=== PATIENT | female | born 1940 | race Caucasian/White ===

== ENCOUNTER 2016-07-27 11:15 | Outpatient (RCR) | payer MEDICARE | END 2016-08-06 10:52 | disposition home or self-care (01) | LOC: WSPT 11:15 | DX: R42 Dizziness and giddiness (principal); R26.89 Other abnormalities of gait and mobility | CPT/HCPCS: G8978-GP; G8979-GP; G8980-GP ==

== ENCOUNTER → 2017-02-09 | Outpatient (CLI) | payer MEDICARE | LOC: MC.RAD 14:40 | DX: Z12.31 Encounter for screening mammogram for malignant neoplasm of breast (principal) ==

== ENCOUNTER → 2018-02-14 | Outpatient (CLI) | payer MEDICARE | LOC: MC.RAD 16:00 | DX: Z12.31 Encounter for screening mammogram for malignant neoplasm of breast (principal) ==

== ENCOUNTER 2019-03-27 16:48 | Emergency (ER) | payer MEDICARE ==
[~2019-03-27] VITALS: Ht 160 cm; Wt 90.9 kg
[2019-03-27 17:38] VITALS: TEMP 96.9
[2019-03-27 19:16] LABS: BASO % 0.4 % (0.0-2.0); EOS % 0.3 % (0-4.0); GRAN # 5.5 (1.4-6.5); GRAN % 80.7 % (42.2-75.2); HEMATOCRIT 45.3 % (37.0-47.0); LYMPH # 0.6 (1.2-3.4); LYMPH % 8.3 % (20.0-51.0); MEAN CELL VOLUME 90 fl (80.0-100.0); MEAN CORPUSCULAR HEMOGLOBIN 28 pg (27.0-31.0); MEAN CORPUSCULAR HGB CONC 31 g/dl (33.0-37.0); MEAN PLATELET VOLUME 10.7 fl (7.4-10.4); MONO # 0.6 (0.1-0.6); MONO % 8.7 % (1.7-9.3); PLATELET COUNT 277 K/mm3 (130-400); RED BLOOD COUNT 5.06 M/mm3 (4.10-5.30); REDCELL DISTRIBUTION WIDTH-CV 15.9 % (11.5-14.5)
[2019-03-27 19:24] LABS: ALBUMIN 4.2 gm/dL (3.5-5.0); BILIRUBIN,TOTAL 0.7 mg/dL (0.0-1.0); C-REACTIVE PROTEIN 6.2 mg/dL (0.0-0.9); CALCIUM 9.4 mg/dL (8.4-10.2); CREATININE, serum 0.92 (0.52-1.25); POTASSIUM 4.2 mmol/L (3.4-5.0); TOTAL PROTEIN 7.8 gm/dL (6.4-8.2)
[2019-03-27] MEDS ORDERED: NORCO 325 MG-51 TAB PO (21:14)
[2019-03-27 21:20] VITALS: BP 166/99; PULSE 100
[2019-03-27] MEDS ORDERED: EFFEXOR-XR150 MG PO (21:27)
[2019-03-27] MEDS ORDERED: PRAVACHOL 20MG20 MG PO (21:27)
[2019-03-27] MEDS ORDERED: NORVASC 5MG5 MG/TAB PO (21:28)
[2019-03-27] MEDS ORDERED: ASPIRIN 81M81 MG/TA2 PO (21:28)
[2019-03-27] MEDS ORDERED: THE MEDICINE S200 M2 PO (21:29)
[2019-03-27] MEDS ORDERED: PRILOSEC 20MG20 MG PO (21:29)
[2019-03-27] MEDS ORDERED: HYZAAR 50-12.1 UDTAB (21:31)
[2019-03-27] MEDS ORDERED: ELIQUIS 5MG PO (21:59)
== END 2019-03-27 22:16 | disposition home or self-care (01) ==
LOC: COL.ER 16:48
PROVIDERS: Family Medicine
DX: I26.99 Other pulmonary embolism without acute cor pulmonale (principal); N83.201 Unspecified ovarian cyst, right side; I10 Essential (primary) hypertension; Z90.710 Acquired absence of both cervix and uterus; Z90.89 Acquired absence of other organs; Z79.82 Long term (current) use of aspirin
CPT/HCPCS: J2270; J2405; J7030; Q9967

== ENCOUNTER → 2019-03-29 | Outpatient (CLI) | payer MEDICARE ==
[~2019-03-29] MED LIST: ASPIRIN 81M81 MG/TA2 PO; EFFEXOR-XR150 MG PO; ELIQUIS 5MG PO; HYZAAR 50-12.1 UDTAB; NORCO 325 MG-51 TAB PO; NORVASC 5MG5 MG/TAB PO; PRAVACHOL 20MG20 MG PO; PRILOSEC 20MG20 MG PO; THE MEDICINE S200 M2 PO
== END ==
LOC: COL.RAD 09:51
DX: I26.99 Other pulmonary embolism without acute cor pulmonale (principal); J90 Pleural effusion, not elsewhere classified
CPT/HCPCS: Q9967

== ENCOUNTER → 2019-04-03 | Outpatient (CLI) | payer MEDICARE | LOC: COL.VAS 12:30 | DX: I82.402 Acute embolism and thrombosis of unspecified deep veins of left lower extremity (principal); I26.99 Other pulmonary embolism without acute cor pulmonale ==

== ENCOUNTER → 2019-11-15 | Outpatient (CLI) | payer MEDICARE | LOC: COL.VAS 12:29 | DX: Z01.89 Encounter for other specified special examinations (principal); I82.409 Acute embolism and thrombosis of unspecified deep veins of unspecified lower extremity; I26.99 Other pulmonary embolism without acute cor pulmonale; Z86.718 Personal history of other venous thrombosis and embolism | CPT/HCPCS: Q9967 ==

== ENCOUNTER → 2020-03-21 | Outpatient (CLI) | payer MEDICARE | LOC: MC.RAD 13:34 | DX: Z12.31 Encounter for screening mammogram for malignant neoplasm of breast (principal) ==

== ENCOUNTER → 2020-06-04 | Outpatient (CLI) | payer MEDICARE | LOC: COL.RAD 12:44 | DX: M16.12 Unilateral primary osteoarthritis, left hip (principal) | CPT/HCPCS: J3301; Q9967 ==

== ENCOUNTER → 2020-06-18 | Outpatient (CLI) | payer MEDICARE | LOC: COL.RAD 12:33 | DX: M16.11 Unilateral primary osteoarthritis, right hip (principal) | CPT/HCPCS: J3301; Q9967 ==

== ENCOUNTER → 2021-04-28 | Outpatient (CLI) | payer MEDICARE | LOC: COL.RAD 09:19 | DX: K80.20 Calculus of gallbladder without cholecystitis without obstruction (principal); K76.0 Fatty (change of) liver, not elsewhere classified; N28.1 Cyst of kidney, acquired ==

== ENCOUNTER 2021-05-11 07:20 | Day surgery (SDC) | payer MEDICARE ==
[~2021-05-11] VITALS: Ht 160 cm; Wt 89.2 kg
[2021-05-11] MEDS ORDERED: PROTONIX20 MG PO (07:50)
[2021-05-11] MEDS ORDERED: HYZAAR 12.5 MG-1 TAB PO (07:50)
[2021-05-11] MEDS ORDERED: MELATONIN3 M1 PO (07:51)
[2021-05-11 08:36] VITALS: BP 135/64; PULSE 79; TEMP 97.7
[2021-05-11] MEDS ORDERED: NORCO 325 MG-51 TAB PO (11:35)
[2021-05-11 12:25] VITALS: BP 139/57; PULSE 91; TEMP 97.5
[2021-05-11 12:40] VITALS: BP 139/60; PULSE 89
--- NOTE | 2021-05-11 12:40 | NUR ---
Patient awakens to verbal stimuli. Requesting sprite and apple sauce at this time. Weaned down to RA, tolerating well.
[2021-05-11 12:55] VITALS: BP 138/63; PULSE 87
--- NOTE | 2021-05-11 12:55 | NUR ---
Patient arrived back into [facility] from PACU. Report recieved from JARON Roche. Patient on 3L O2 via NC. Patient drowsy but arousable. Daughter at bedside. Patient states she would like to rest for a bit.
--- NOTE | 2021-05-11 13:00 | NUR ---
Patient stating she is having some pain. PRN pain medications given per MAR.
[2021-05-11 13:10] VITALS: BP 132/53; PULSE 87
--- NOTE | 2021-05-11 13:10 | NUR ---
Went through discharge instructions with patient and daughter. Both verbalized understanding to education. Follow up appointment made. IV removed without complications. Patient daughter to assist patient to restroom and to get dressed.
[2021-05-11 13:26] VITALS: BP 139/57; PULSE 91
--- NOTE | 2021-05-11 13:30 | NUR ---
Patient dressed and voided successfully. States pain is tolerable at this time with minimal nausea. Vital signs stable. Patient meets discharge criteria at this time. Patient escorted to patient entrance via wheelchair. Got into daughter's vehicle unassisted and patient left in the care of her daughter.
== END 2021-05-11 14:40 | disposition home or self-care (01) ==
LOC: SDCO 07:20
DX: K80.10 Calculus of gallbladder with chronic cholecystitis without obstruction (principal); K43.9 Ventral hernia without obstruction or gangrene; E66.9 Obesity, unspecified; Z68.34 Body mass index [BMI] 34.0-34.9, adult; Z86.718 Personal history of other venous thrombosis and embolism; Z79.01 Long term (current) use of anticoagulants; G47.33 Obstructive sleep apnea (adult) (pediatric)
CPT/HCPCS: J0690; J1100; J1170; J1885; J2405; J2704; J3010; J7120

== ENCOUNTER 2021-09-19 08:52 | Inpatient (IN) | payer MEDICARE ==
[~2021-09-19] VITALS: Ht 160 cm; Wt 87.0 kg
[~2021-09-19 08:52] MED LIST changes: +HYZAAR 12.5 MG-1 TAB PO; +MELATONIN5 M1 SL; +PROTONIX 40MG T40 MG PO
[2021-09-19 09:40] LABS: HEMATOCRIT 40.1 % (37.0-47.0); HEMOGLOBIN 13.4 g/dl (12.5-16.0); MEAN CELL VOLUME 94 fl (80.0-100.0); MEAN CORPUSCULAR HEMOGLOBIN 32 pg (27-31); MEAN CORPUSCULAR HGB CONC 33 g/dl (33.0-37.0); MEAN PLATELET VOLUME 11.2 fl (7.4-10.4); PLATELET COUNT 133 K/mm3 (130-400); RED BLOOD COUNT 4.26 M/mm3 (4.10-5.30); REDCELL DISTRIBUTION WIDTH-CV 15.3 % (11.5-14.5)
[2021-09-19 09:55] LABS: GLUCOSE 136 mg/dL (70-99)
[2021-09-19 09:56] LABS: ALANINE AMINOTRANSFERASE 33 U/L (0-55); ALBUMIN 3.4 gm/dL (3.4-4.8); ALKALINE PHOSPHATASE 84 U/L (40-150); ANION GAP 17 mmol/L (7-16); AST,SGOT 23 U/L (5-34); BILIRUBIN,TOTAL 0.6 mg/dL (0.2-1.2); BLOOD UREA NITROGEN 36 mg/dL (10-20); CALCIUM 9.2 mg/dL (8.4-10.2); CARBON DIOXIDE 26 mmol/L (23-31); CHLORIDE 96 mmol/L (98-107); CREATININE, serum 1.43 mg/dL (0.57-1.11); LIPASE 11 U/L (8-78); POTASSIUM 3.8 mmol/L (3.5-4.5); SODIUM 139 mmol/L (136-145); TOTAL PROTEIN 7.2 gm/dL (6.2-8.1)
[2021-09-19 09:59] LABS: BAND 30 % (0-10); LYMPHOCYTE 29 % (20.0-51.0); METAMYELOCYTE 2 % (0-0); NEUTROPHILS 29 % (42.0-75.2); PLATELET ESTIMATE NORMAL (NORMAL)
[2021-09-19 10:02] LABS: TROPONIN-I < 0.010 ng/mL (0.00-0.033)
[2021-09-19] MEDS ORDERED: ELIQUIS 2.5 PO (11:20)
[2021-09-19] MEDS ORDERED: PRAVACHOL 20MG20 MG PO (11:22)
[2021-09-19 16:00] VITALS: BP 130/45; TEMP 98.2
--- NOTE | 2021-09-19 16:48 | NUR ---
14G NG TUBE HAS BEEN INSERTED INTO PT'S RIGHT NARE. CHLORASEPTIC SPRAY USED PRIOR TO INSERTION. AUSCULTATION CONFIRMED CORRECT PLACEMENT, NO GASTRIC CONTENTS SEEN. DR. DELONG CALLED, IS NOT AVAILABLE @ THIS TIME, WILL CALL BACK. PT'S RESPIRATIONS ARE UNLABORED ON ROOM AIR WITH NO WHEEZING. PT DOES APPEAR ANXIOUS. TUBE HAS BEEN SECURED TO PT'S NOSE ET GOWN.
[2021-09-19] MEDS ORDERED: HEALTHY EYES S1 EAC2 PO (18:20)
[2021-09-19 19:25] VITALS: BP 116/50; PULSE 90; TEMP 98.3
--- NOTE | 2021-09-19 23:14 | NUR ---
ASSESSMENT COMPLETE. PT. SITTING IN BED. A&O. NO COMPLAINTS OF PAIN EXCEPT A SORE THROAT. SPRAY GIVEN (SEE EMAR). NG TUBE IN PLACE AND SET TO INTERMITTENT SUCTION. STAND BY ASSISST TO THE BATHROOM. STEADY GAIT. CALL LIGHT IN REACH. NO FURHTER NEEDS AT THIS TIME.
[2021-09-19 23:26] VITALS: BP 131/57; PULSE 91; TEMP 98.1
[2021-09-20 03:50] VITALS: BP 125/56; PULSE 87; TEMP 97.9
[2021-09-20 07:17] LABS: HEMOGLOBIN 11.6 g/dl (12.5-16.0); MEAN CELL VOLUME 96 fl (80.0-100.0); MEAN CORPUSCULAR HEMOGLOBIN 32 pg (27-31); MEAN CORPUSCULAR HGB CONC 33 g/dl (33.0-37.0); MEAN PLATELET VOLUME 10.5 fl (7.4-10.4); PLATELET COUNT 98 K/mm3 (130-400); RED BLOOD COUNT 3.68 M/mm3 (4.10-5.30); REDCELL DISTRIBUTION WIDTH-CV 15.1 % (11.5-14.5)
[2021-09-20 07:19] VITALS: BP 124/54; PULSE 89; TEMP 98.1
[2021-09-20 07:19] LABS: HEMATOCRIT 35.4 % (37.0-47.0)
[2021-09-20 07:59] LABS: BAND 11 % (0-10); EOSINOPHIL 1 % (0-4); LYMPHOCYTE 41 % (20.0-51.0); METAMYELOCYTE 3 % (0-0); NEUTROPHILS 32 % (42.0-75.2)
[2021-09-20 08:00] LABS: ALBUMIN 2.9 gm/dL (3.4-4.8); BILIRUBIN,TOTAL 0.5 mg/dL (0.2-1.2); CALCIUM 8.4 mg/dL (8.4-10.2); CREATININE, serum 0.76 mg/dL (0.57-1.11); PLATELET ESTIMATE DECREASED (NORMAL); POTASSIUM 3.7 mmol/L (3.5-4.5); TOTAL PROTEIN 5.8 gm/dL (6.2-8.1)
--- NOTE | 2021-09-20 10:46 | NUR ---
SW met with patient to complete intake. Patient states that she lives alone In [facility]. Next of kin is her son Rob Meier [phone]. Patient does not utilize DME, is independent with ADL's and does not utilize HH services. PCP is Dr. Silver, [facility]. DPOA/HC is daughter Mayra Pillai. Patient plans to return to her home upon DC. SW will continue to follow. DC plan: home
[2021-09-20 11:27] VITALS: BP 138/59; PULSE 90; TEMP 98.4
--- NOTE | 2021-09-20 13:17 | NUR ---
DR. DELONG MADE AWARE OF LOVENOX ET NORVASC NOT BEING ADMINISTERED THIS AM, BP DECREASED ET PLATELETS DECREASED. PT RESTS IN BED, HAS BEEN UP TO BR X1, HAS VOIDED ET HAD AN INCONTINENT BM. NG TUBE IN PLACE TO LOW INTERMITTENT SUCTION. PT DENIES NAUSEA OR PAIN, STATES THAT SHE JUST DOESN'T FEEL WELL. FAMILY HAS BEEN HERE TO VISIT. CALL LIGHT WITHIN REACH.
[2021-09-20 15:18] VITALS: BP 126/66; PULSE 94; TEMP 97.9
[2021-09-20 20:22] VITALS: BP 145/66; PULSE 89; TEMP 98.1
[2021-09-20 23:47] VITALS: BP 150/65; PULSE 91; TEMP 98
[2021-09-21] VITALS (11 sets, daily range): BP systolic 117–149; BP diastolic 41–74; PULSE 75–102; TEMP 97.7–98.2
--- NOTE | 2021-09-21 02:17 | NUR ---
PATIENT IN BED ON ROOM ENTRY. ALERT AND ORIENTED. DENIES PAIN AND NAUSEA. NG TO LIS, SOME CLEAR/RED ASPIRATION IN TUBE BUT NOTHING IN SUCTION CANISTER. HYPOACTIVE BOWEL SOUNDS NOTED. LARGE HERNIA PRESENT. IVF TO L WRIST IV. DENIES ADDITIONAL NEEDS.
[2021-09-21 06:44] LABS: HEMOGLOBIN 11.2 g/dl (12.5-16.0); MEAN CELL VOLUME 96 fl (80.0-100.0); MEAN CORPUSCULAR HEMOGLOBIN 31 pg (27-31); MEAN CORPUSCULAR HGB CONC 32 g/dl (33.0-37.0); MEAN PLATELET VOLUME 10.5 fl (7.4-10.4); PLATELET COUNT 93 K/mm3 (130-400); RED BLOOD COUNT 3.64 M/mm3 (4.10-5.30); REDCELL DISTRIBUTION WIDTH-CV 14.3 % (11.5-14.5)
[2021-09-21 06:53] LABS: HEMATOCRIT 34.9 % (37.0-47.0)
[2021-09-21 07:09] LABS: ALBUMIN 2.9 gm/dL (3.4-4.8); BILIRUBIN,TOTAL 0.5 mg/dL (0.2-1.2); CALCIUM 8.6 mg/dL (8.4-10.2); CREATININE, serum 0.63 mg/dL (0.57-1.11); POTASSIUM 3.8 mmol/L (3.5-4.5); TOTAL PROTEIN 5.9 gm/dL (6.2-8.1)
--- NOTE | 2021-09-21 08:00 | NUR ---
PT LAYING SUPINE IN BED ON ROOM AIR. NG TUBE ON LIS. PT STATES NO PAIN JUST SOME NAUSEA AND "THIS TUBE IN MY NOSE IS UNCOMFORTABLE." PT STATES THAT SHE IS UNCOMFORTABLE IN BED. I SUGGESTED TO PT THAT SHE CAN GET UP IN CHAIR AND SIT. ASSISTED PT TO GET TO CHAIR. PT STATES NO OTHER NEEDS/CONCERNS AT THIS TIME. "IM JUST WAITING AROUND TIL TIME FOR SURG." CALL LIGHT IS IN WITHIN REACH.
[2021-09-21 08:04] LABS: BAND 4 % (0-10); LYMPHOCYTE 26 % (20.0-51.0); NEUTROPHILS 56 % (42.0-75.2)
[2021-09-21 08:05] LABS: HYPOCHROMIA 1+; PLATELET ESTIMATE DECREASED (NORMAL)
--- NOTE | 2021-09-21 10:47 | NUR ---
Initial visit; Patient thanked Manager Cosmetic for looking in on her and introducing herself. Manager Cosmetic offered spiitual care and will keep patient in her prayers.
--- NOTE | 2021-09-21 15:03 | NUR ---
PT OFF FLOOR TO SURG
--- NOTE | 2021-09-21 19:10 | NUR ---
Pt. to the floor from PACU. Pt. is a&OX3, shift assessment complete. INT to lt. forearm patent, IV fluids infusing. Pt. reports pain to abd at a 7 on pain scale, will give meds per orders. Pt. denies further needs, call light within reach.
[2021-09-22 00:36] VITALS: BP 123/63; PULSE 98; TEMP 97.7
[2021-09-22 03:51] VITALS: BP 136/68; PULSE 98; TEMP 98
[2021-09-22 06:54] LABS: HEMOGLOBIN 11.2 g/dl (12.5-16.0); MEAN CELL VOLUME 96 fl (80.0-100.0); MEAN CORPUSCULAR HEMOGLOBIN 32 pg (27-31); MEAN CORPUSCULAR HGB CONC 33 g/dl (33.0-37.0); MEAN PLATELET VOLUME 10.9 fl (7.4-10.4); PLATELET COUNT 106 K/mm3 (130-400); RED BLOOD COUNT 3.56 M/mm3 (4.10-5.30); REDCELL DISTRIBUTION WIDTH-CV 14.3 % (11.5-14.5)
[2021-09-22 06:55] LABS: HEMATOCRIT 34.1 % (37.0-47.0)
[2021-09-22 07:12] LABS: ALBUMIN 2.6 gm/dL (3.4-4.8); BILIRUBIN,TOTAL 0.5 mg/dL (0.2-1.2); CALCIUM 8.1 mg/dL (8.4-10.2); CREATININE, serum 0.62 mg/dL (0.57-1.11); POTASSIUM 4.2 mmol/L (3.5-4.5); TOTAL PROTEIN 5.3 gm/dL (6.2-8.1)
[2021-09-22 07:55] LABS: BAND 25 % (0-10); LYMPHOCYTE 7 % (20.0-51.0); METAMYELOCYTE 1 % (0-0); NEUTROPHILS 62 % (42.0-75.2); PLATELET ESTIMATE DECREASED (NORMAL)
[2021-09-22 08:00] VITALS: BP 141/62; PULSE 94; TEMP 98.7
[2021-09-22 12:00] VITALS: BP 136/60; PULSE 97; TEMP 98
[2021-09-22 16:00] VITALS: BP 132/66; PULSE 88; TEMP 99
--- NOTE | 2021-09-22 16:59 | NUR ---
1630 - HODGES AND NG TUBE REMOVED PER DR. DELONG. FLUIDS STOPPED AND IV SALINE LOCKED PER DR. DELONG. PT AMBULATED WITH STANDBY ASSIST. TOLERATED WELL. UP IN CHAIR COMFORTABLY. CALL LIGHT WITHIN REACH.
[2021-09-22 20:22] VITALS: BP 145/67; PULSE 94; TEMP 97.7
--- NOTE | 2021-09-22 21:30 | NUR ---
Pt. laying in bed. Pt. is A&OX3, assessment complete. INT to lt. wrist patent. Dressing to abd. CDI. Pt. denies pain or other needs, call light within reach.
[2021-09-23 00:29] VITALS: BP 139/61; PULSE 94; TEMP 98
[2021-09-23 05:01] VITALS: BP 137/81; PULSE 63; TEMP 98.5
[2021-09-23 06:46] LABS: MEAN CORPUSCULAR HEMOGLOBIN 31 pg (27-31)
[2021-09-23 06:50] LABS: HEMOGLOBIN 10.8 g/dl (12.5-16.0); RED BLOOD COUNT 3.46 M/mm3 (4.10-5.30)
[2021-09-23 06:51] LABS: HEMATOCRIT 33.2 % (37.0-47.0); MEAN CELL VOLUME 96 fl (80.0-100.0); MEAN CORPUSCULAR HGB CONC 33 g/dl (33.0-37.0); MEAN PLATELET VOLUME 10.5 fl (7.4-10.4); PLATELET COUNT 117 K/mm3 (130-400); REDCELL DISTRIBUTION WIDTH-CV 14.7 % (11.5-14.5)
[2021-09-23 07:10] LABS: ALBUMIN 2.7 gm/dL (3.4-4.8); BILIRUBIN,TOTAL 0.7 mg/dL (0.2-1.2); CALCIUM 8.2 mg/dL (8.4-10.2); CREATININE, serum 0.6 mg/dL (0.57-1.11); POTASSIUM 3.9 mmol/L (3.5-4.5); TOTAL PROTEIN 5.5 gm/dL (6.2-8.1)
[2021-09-23 07:44] VITALS: BP 133/61; PULSE 94; TEMP 97.6
[2021-09-23 07:59] LABS: BAND 10 % (0-10); LYMPHOCYTE 19 % (20.0-51.0); NEUTROPHILS 61 % (42.0-75.2); PLATELET ESTIMATE DECREASED (NORMAL)
--- NOTE | 2021-09-23 08:00 | NUR ---
PATIENT IS ORIENTED BUT REPORTS SHE IS VERY TIRED THIS AM. VSS. NO C/O N/V. RIGHT WRIST IV TO INT. TOLERATING CLEARS. AM MEDS GIVEN WITH SIPS. ABD IS DISTENDED, SLIGHTLY FIRM, AND WITH HYPO ACTIVE BOWL SOUNDS NOTED. PATIENT REPORTS SHE NO FLATUS OR BM. CHANGE ABD MIDLINE DRESSING AND APPLIED GAUZE & HYPAFIX. SCD'S TO BLE. HEAD TO TOE ASSESSMENT COMPLETE. PATIENT RESTING WITH CALL LIGHT IN REACH.
--- NOTE | 2021-09-23 09:24 | NUR ---
MARITZA staffed with the patient's RN. The patient has been independent in her room. SW met with the patient to follow up and review discharge plan. The patient states that she is doing well and that the doctor is thinking she should be ready for discharge on Tuesday. The patient confirms plan to return home upon discharge. She states that she has assistance from her children and has no concerns for SW. *Discharge plan: home*
[2021-09-23 12:30] VITALS: BP 132/66; PULSE 112; TEMP 98.4
[2021-09-23 16:21] VITALS: BP 118/53; PULSE 108; TEMP 98.1
[2021-09-23 19:53] VITALS: BP 125/51; PULSE 100; TEMP 97.7
--- NOTE | 2021-09-23 21:50 | NUR ---
Pt. sitting up in chair. Pt. is a&OX3, assessment complete. INT to lt. wrist patent. Pt. reports pain to abd at a 5 on pain scale. Giving pain meds per orders. Pt. denies further needs, call light within reach.
[2021-09-24] VITALS (7 sets, daily range): BP systolic 103–124; BP diastolic 44–64; PULSE 77–87; TEMP 97.6–98.5
--- NOTE | 2021-09-24 08:43 | NUR ---
PT IS IN BED, A&O X3, RESPIRATIONS ON ROOM AIR. PT DENIES PAIN OR NAUSEA, STATES THAT PAIN PILL GIVEN EARLIER WORKED. PT STATES THAT SHE HAS NO PASSED GAS THIS AM BUT DID LAST NIGHT WITH A SMALL LIQUID STOOL. BOWEL SOUNDS ARE HYPOACTIVE.
--- NOTE | 2021-09-24 18:37 | NUR ---
PT SITTING UP IN CHAIR EATING DINNER, IS TOLERATING FULL LIQUIDS WELL. PT HAS BEEN INDEPENDENT IN ROOM TODAY, HAS PASSED GAS BUT HAS HAD NO STOOLS. PT HAS AMBULATED IN HALLWAY WITH FAMILY. NORCO ADMINISTERED FOR PAIN, PT STATES THAT PAIN IS INTERMITTENT WITH MOVEMENT MOSTLY.
[2021-09-25 03:28] VITALS: BP 112/57; PULSE 77; TEMP 98.7
[2021-09-25 07:23] VITALS: BP 124/59; PULSE 83; TEMP 98.4
[2021-09-25] MEDS ORDERED: NORCO 325 MG-51 TAB PO (08:51)
--- NOTE | 2021-09-25 11:07 | NUR ---
OT notified MARITZA that the patient would benefit from a bath aide. The patient is to tentatively discharge later today. MARITZA met with the patient to review discharge plan and discuss home health. The patient is interested in home health for a bathe aide and is agreeable with using [facility]. MARITZA presented and read the IM form outloud to the patient. The patient verbalized understanding and agreement to discharge today. She signed the form and MARITZA provided her with a copy. MARITZA contacted and faxed a referral to Lars at [facility]. *Discharge plan: home with home health*
[2021-09-25 11:50] VITALS: BP 118/58; PULSE 60; PULSE 73; TEMP 98.4
--- NOTE | 2021-09-25 15:33 | NUR ---
The patient is to discharge back home today, 09/25, with home health services for care home/PT/OT from [facility]. MARITZA attempted to notify Lars at [facility]. SW left her a voicemail and faxed over the orders. No additional needs at this time.
--- NOTE | 2021-09-25 17:06 | NUR ---
DISCHARGE INSTRUCTIONS PROVIDED. PATIENT EDUCATION GIVEN. FOLLOW UP APPOINTMENTS DISCUSSED. PATIENT DENIES ANY QUESTIONS. IV DC'D. PATIENT ESCORTED OUT VIA WHEELCHAIR.
[2021-09-29] MEDS ORDERED: NORCO 325 MG-51 TAB PO (14:56)
== END 2021-09-25 16:30 | disposition home or self-care (01) | DRG 354 ==
LOC: COL.ER 08:52 → SURG 11:10
PROVIDERS: Emergency Medicine; ADMIT Surgery
PROC: 0WUF0JZ Supplement Abdominal Wall with Synthetic Substitute, Open Approach (ICD-10-PCS; principal; 2021-09-21 12:15)
DX: K46.0 Unspecified abdominal hernia with obstruction, without gangrene (principal); N17.9 Acute kidney failure, unspecified; K43.6 Other and unspecified ventral hernia with obstruction, without gangrene; D72.829 Elevated white blood cell count, unspecified; I10 Essential (primary) hypertension; G47.33 Obstructive sleep apnea (adult) (pediatric); E78.5 Hyperlipidemia, unspecified; K21.9 Gastro-esophageal reflux disease without esophagitis; F32.A Depression, unspecified; D72.819 Decreased white blood cell count, unspecified; K76.0 Fatty (change of) liver, not elsewhere classified; D69.6 Thrombocytopenia, unspecified; D64.9 Anemia, unspecified; Z20.822 Contact with and (suspected) exposure to COVID-19; Z86.718 Personal history of other venous thrombosis and embolism; Z79.01 Long term (current) use of anticoagulants; Z90.710 Acquired absence of both cervix and uterus; Z90.49 Acquired absence of other specified parts of digestive tract; Z90.79 Acquired absence of other genital organ(s); Z90.722 Acquired absence of ovaries, bilateral; Z88.8 Allergy status to other drugs, medicaments and biological substances; Z86.711 Personal history of pulmonary embolism; Z23 Encounter for immunization
CPT/HCPCS: A4314; C1781; J0690; J1100; J1170; J1650; J2250; J2405; J2704; J2710; J3010; J7120; Q9967